=== PATIENT | male | born 1975 | race Caucasian/White ===

== ENCOUNTER 2023-07-26 21:50 | Emergency (ER) | payer OTHER, SELFPAY ==
[2023-07-26 21:56] VITALS: BP 162/105; PULSE 63; RESP 18; TEMP 36.2; O2SAT 97; BMI 39.9
--- NOTE | 2023-07-26 22:12 | CRLHL7_ITS ---
For Patients: As a result of the Century Cures Act, medical imaging exams and procedure reports are released immediately into your electronic medical record. You may view this report before your referring provider. If you have questions, please contact your health care provider. INDICATION: Chest pain. TECHNIQUE: Chest 2 views. COMPARISON: November 13, 2018. FINDINGS: Cardiovascular and mediastinum: Heart size and vasculature are normal in caliber and appearance. Lungs and pleural spaces: Lungs are clear. No sign of infiltrate or mass. No sign of pleural effusion. No pneumothorax. Bones and soft tissues: No significant findings. IMPRESSION: No acute findings and no significant changes from the prior exam. Dictated by Manny Madden MD @ 07/26/2023 10:44:02 PM (Electronically Signed)
[2023-07-26 22:45] LABS: Chloride* 99 mmol/L (96-114); Potassium* 3.2 mmol/L (3.6-5.1); Sodium* 139 mmol/L (135-149)
[2023-07-26 22:48] LABS: Anion Gap 16 mEq/L (7-15); Blood Urea Nitrogen* 22 mg/dL (5-24); Carbon Dioxide* 24 mmol/L (20-32); Creatinine* 1.1 mg/dL (0.5-1.5); Est. Creatinine Clearance* 75.95; Estimated Glomerular Filt Rate 82 ml/min; Glucose* 95 mg/dL (60-115)
[2023-07-26 22:48] LABS: Basophils Absolute Auto 0.05 K/uL (0.00-0.30); Basophils Percent Auto 0.8 % (0.0-3.0); Eosinophils Absolute Auto 0.25 K/uL (0.00-0.50); Eosinophils Percent Auto 3.9 % (0.0-7.0); Hematocrit 42.3 % (37.0-53.0); Hemoglobin* 15.3 gm/dL (13.5-17.5); Immature Granulocytes Abs Auto 0.05 K/uL (0.00-0.30); Immature Granulocytes Pct Auto 0.8 %; Lymphocytes Absolute Auto 1.88 K/uL (0.90-2.90); Lymphocytes Percent Auto 29.5 % (20-44); Mean Corpuscular HGB Conc 36 gm/dL (32-36); Mean Corpuscular Hemoglobin 32 pg (26-34); Mean Corpuscular Volume 88 fL (80-100); Monocytes Percent Auto 9.4 % (0.0-11.0); Neutrophils Absolute Auto 3.54 K/uL (1.7-7.0); Neutrophils Percent Auto 55.6 % (42.0-72.0); Platelet Count* 228 K/uL (140-440); RDW Coefficient of Variation % 12.3 % (11.5-15.5); Red Blood Count 4.79 m/uL (4.30-5.90); White Blood Count* 6.37 K/uL (4.50-11.00)
[2023-07-26 22:49] LABS: Calcium* 9.3 mg/dL (8.4-10.6)
--- NOTE | 2023-07-26 22:51 | ED.GENADULT ---
HPI - General Adult General Chief complaint: Chest Pain Stated complaint: Chest pain Time Seen by Provider: 07/26/23 22:43 Source: patient Mode of arrival: ambulatory Limitations: no limitations History of Present Illness HPI narrative: Patient is a 47-year-old male presenting today with chest pain. Pain has been present for the last 4-5 days. Nothing makes it better or worse. He has no trouble sleeping at night. It is not associated with eating or physical activity. Does not notice it if he is busy but he does notice it during quite times for example when he is driving. He denies feeling short of breath, no nausea, vomiting, or diaphoresis. He is not coughing. He denies any long car rides or airplane rides. He does not smoke or do any other drugs. He denies any personal or family history of blood clots. He denies increased discomfort with deep inspiration. He describes it as a dull ache in the center of the chest and every now and then he feels a sharp discomfort that lasts a couple seconds, but this is rare. Maternal grandmother had coronary artery disease in her early 70s. Patient does state that he has had a stress test in the past, he believes it was a ?few years ago? Related Data Home Medications Medication Instructions Recorded Confirmed amlodipine 10 mg tablet 10 mg PO DAILY 07/26/23 07/26/23 atenolol 100 mg tablet 100 mg PO DAILY 07/26/23 07/26/23 Allergies Allergy/AdvReac Type Severity Reaction Status Date / Time amoxicillin AdvReac Severe Anaphylaxis Verified 07/26/23 22:00 Review of Systems Status of ROS: Reports: 10 or more systems reviewed and unremarkable except as noted in History and below [facility] Medical History (Updated 07/26/23 @ 23:39 by Gina Bailey MD) No significant past medical history Surgical History No significant past surgical history Social History Smoking Status: Never smoker Second hand tobacco smoke exposure: No How often do you have a drink containing alcohol: never How often do you have six or more drinks on one occasion: Never AUDIT-C Alcohol total score: 0 Non-prescribed substance use: denies use Exam Narrative: Exam Narrative: Overweight, well-developed patient in no acute distress. Alert and oriented. Answers questions appropriately. Mood and affect are appropriate. Thoughts are goal oriented and rational. No tangential or magical thinking noted. Patient speaks in full sentences without needing to catch his breath. HEENT: Normocephalic atraumatic. Pupils are equally round reactive to light. Extraocular muscles are intact. Conjunctivae are moist without any icterus noted. Moist mucous membranes. Posterior pharynx is normal. Neck is soft without any lymphadenopathy or thyromegaly. No masses are appreciated. Cardiovascular: Heart is regular rate and rhythm S1 and S2 are present without any murmurs. Lungs: Clear to auscultation bilaterally no wheezes rhonchi or rales are appreciated. Patient takes deep breaths without any discomfort. Abdomen: Soft and nontender nondistended with normal bowel sounds. No guarding or rebound. Protuberant. Extremities: Bilateral lower extremities are without edema. Skin: Well perfused without any obvious rashes. Const: Vital Signs, click to edit/add: Vital Signs - 24 hr 07/26/23 21:56 07/26/23 22:52 07/26/23 23:00 Temperature 97.2 F L Pulse Rate [Right Pulse Oximeter] 63 58 L Respiratory Rate 18 16 Blood Pressure [Ri ght Upper Arm] 162/105 H 159/96 H Pulse Oximetry 97 97 96 Oxygen Delivery Me thod Room Air Room Air Course Course ED Course: EKG, read by me, shows normal sinus rhythm. Chest x-ray, read by me, does not show any acute pathology. Troponin is 0. CBC unremarkable. Chemistry show hypokalemia at 3.2. Twenty mEq of oral potassium given in the ER today. D-dimer is negative. Patient is given a dose of Carafate while he is in the ER. He stated that it did not really make a difference for him. Vital Signs Vital signs: Initial Vital Signs Temperature 97.2 F L 07/26/23 21:56 Temperature Source Temporal Artery Scan 07/26/23 21:56 Pulse Rate 63 07/26/23 21:56 Pulse Rhythm Regular 07/26/23 21:56 Pulse Strength 3+ Normal 07/26/23 21:56 Respiratory Rate 18 07/26/23 21:56 Blood Pressure 162/105 H 07/26/23 21:56 Blood Pressure Mean 124 H 07/26/23 21:56 Blood Pressure Position Sitting 07/26/23 21:56 Pulse Oximetry 97 07/26/23 21:56 Oxygen Delivery Method Room Air 07/26/23 21:56 Vital Signs Temperature 97.2 F L 07/26/23 21:56 Pulse Rate 63 07/26/23 21:56 Respiratory Rate 18 07/26/23 21:56 Blood Pressure 162/105 H 07/26/23 21:56 Pulse Oximetry 97 07/26/23 21:56 Oxygen Delivery Method Room Air 07/26/23 21:56 Temperature 97.2 F L 07/26/23 21:56 Pulse Rate 58 L 07/26/23 23:00 Respiratory Rate 16 07/26/23 23:00 Blood Pressure 159/96 H 07/26/23 23:00 Pulse Oximetry 96 07/26/23 23:00 Oxygen Delivery Method Room Air 07/26/23 23:00 Medical Decision Making MDM Narrative Medical decision making narrative: Life-threatening differential diagnosis excluded today includes acute coronary syndrome, PE, pneumothorax, pneumonia. The patient does not appear to be having myocarditis or pericarditis. Other things to consider would be musculoskeletal discomfort or reflux which are more likely in this situation. I think at this time it is reasonable to discharge the patient home have follow-up in the clinic. They can discuss whether not he needs another stress test at this time. I do recommend daily omeprazole in the meantime to see if this makes a difference. Hypokalemia, 1 dose of potassium chloride given in the ER today. Recommend follow-up with primary care provider. Lab Data Lab results reviewed: Yes I reviewed the patient's lab results Labs: Lab Results 07/26/23 07/26/23 Range/Units 22:00 22:08 WBC 6.37 (4.50-11.00) K/uL RBC 4.79 (4.30-5.90) m/uL Hgb 15.3 (13.5-17.5) gm/dL Hct 42.3 (37.0-53.0) % MCV 88 (80-100) fL MCH 32 (26-34) pg MCHC 36 (32-36) gm/dL RDW Coeff of [place] 12.3 (11.5-15.5) % Plt Count 228 (140-440) K/uL Neut % (Auto) 55.6 (42.0-72.0) % Lymph % (Auto) 29.5 (20-44) % [place] % (Auto) 9.4 (0.0-11.0) % Eos % (Auto) 3.9 (0.0-7.0) % Baso % (Auto) 0.8 (0.0-3.0) % Neut # (Auto) 3.54 (1.7-7.0) K/uL Lymph # (Auto) 1.88 (0.90-2.90) K/uL [place] # (Auto) 0.60 (0.00-0.90) K/UL Eos # (Auto) 0.25 (0.00-0.50) K/uL Baso # (Auto) 0.05 (0.00-0.30) K/uL Abs Immat Gran (auto) 0.05 (0.00-0.30) K/uL Imm/Tot Granulo (auto) 0.8 % D-Dimer Quant (PE/DVT) < 0.27 (0.00-0.50) ug/ml Sodium 139 (135-149) mmol/L Potassium 3.2 L (3.6-5.1) mmol/L Chloride 99 (96-114) mmol/L Carbon Dioxide 24 (20-32) mmol/L Anion Gap 16 H (7-15) mEq/L BUN 22 (5-24) mg/dL Creatinine 1.1 (0.5-1.5) mg/dL Estimated Creat Clear 75.95 Estimated GFR 82 ml/min Glucose 95 (60-115) mg/dL Calcium 9.3 (8.4-10.6) mg/dL Total Bilirubin 0.7 (0.1-1.5) mg/dL Direct Bilirubin 0.0 (0.0-0.5) mg/dL AST 36 H (12-35) U/L ALT 38 (4-50) U/L Alkaline Phosphatase 49 (40-150) U/L C-Reactive Protein < 0.5 L (0.5-1.0) mg/dL Total Protein 7.7 (6.0-8.3) g/dL Albumin 4.7 (3.3-5.0) g/dL Lipase 245 (23-300) U/L POC Troponin I 0.00 L (0.01-0.04) ng/ml Imaging Data Chest x-ray: Attestation: I have reviewed the pertinent imaging results. Radiologist's impression: Chest 2 views. COMPARISON: November 13, 2018. FINDINGS: Cardiovascular and mediastinum: Heart size and vasculature are normal in caliber and appearance. Lungs and pleural spaces: Lungs are clear. No sign of infiltrate or mass. No sign of pleural effusion. No pneumothorax. Bones and soft tissues: No significant findings. IMPRESSION: No acute findings and no significant changes from the prior exam. ECG Data Attestation: I personally reviewed and interpreted this ECG as follows: Discharge Plan Discharge Clinical Impression: Atypical chest pain Patient Disposition: Home, Self-Care Condition: Stable Additional Instructions: Recommend you follow-up in the clinic as soon as you can to establish care with a new provider and to discuss whether not you need another stress test. I do recommend you start taking a daily omeprazole, you can purchase this [id number]. This is an antacid medication that can help with chest discomfort. If your pain worsens, you should return to the ER. Prescriptions: No Action atenolol 100 mg tablet 100 mg PO DAILY amlodipine 10 mg tablet 10 mg PO DAILY Follow Up/Referrals: Provider,Not a Local [Primary Care Provider] - Stand Alone Forms: [employer] Info Instructions
[2023-07-26 22:52] VITALS: O2SAT 97
[2023-07-26 22:58] LABS: Slide Review Reflex No
[2023-07-26 23:00] VITALS: BP 159/96; PULSE 58; RESP 16; O2SAT 96
[2023-07-26] MEDS: SUCRALFATE 1 GM TABLET PO (23:12)
[2023-07-26] MEDS: POTASSIUM CHLORIDE 10 MEQ CAPSULE ER 20 MEQ PO (23:19)
[2023-07-26 23:23] LABS: Albumin* 4.7 g/dL (3.3-5.0)
[2023-07-26 23:27] LABS: Alanine Aminotransferase* 38 U/L (4-50); Alkaline Phosphatase* 49 U/L (40-150); Aspartate Amino Transferase* 36 U/L (12-35); Bilirubin Total* 0.7 mg/dL (0.1-1.5); Lipase* 245 U/L (23-300); Total Protein* 7.7 g/dL (6.0-8.3)
[2023-07-26 23:32] LABS: C Reactive Protein* < 0.5 mg/dL (0.5-1.0)
[2023-07-26 23:33] LABS: D Dimer Quantitative* < 0.27 ug/ml (0.00-0.50)
[2023-07-26 23:49] VITALS: BP 159/96; PULSE 58; RESP 16; TEMP 36.6
== END 2023-07-26 23:50 | disposition home or self-care (01) ==
PROVIDERS: Emergency Provider Family Medicine
DX: R07.89 Other chest pain (principal)
CPT/HCPCS: 36415; 71046; 80048; 80076; 83605; 83690; 84484; 85025; 85379; 86140; 93005; 94761; 99284; 99285; A9270